=== PATIENT | female | born 2000 | race Caucasian/White ===

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

== ENCOUNTER 2022-11-19 15:54 | Emergency (ER) | payer OTHER ==
[~2022-11-19] VITALS: Ht 129.5 cm; Wt 69.2 kg
[2022-11-19 16:05] VITALS: BP 126/69
[2022-11-19 17:06] LABS: BASOPHILS % (AUTO) 0.5 % (0.0-2.0); EOSINOPHILS # (AUTO) 0.1 K/uL (0-0.4); EOSINOPHILS % (AUTO) 1.1 % (0.0-4.0); HEMATOCRIT 36.4 % (36-48); HEMOGLOBIN 12.4 g/dL (12.0-16.0); LYMPHOCYTES # (AUTO) 1.6 K/uL (2.5-16.5); LYMPHOCYTES % (AUTO) 21.6 % (20.5-51.1); MEAN CORPUSCULAR HEMOGLOBIN 30 pg (27-31); MEAN CORPUSCULAR HGB CONC 34 g/dL (33-37); MEAN CORPUSCULAR VOLUME 87.5 fL (80-94); MONOCYTES # (AUTO) 0.5 K/uL (0.8-1.0); MONOCYTES % (AUTO) 6.7 % (1.7-9.3); NEUTROPHILS # (AUTO) 5.3 K/uL (1.8-7.7); NEUTROPHILS % (AUTO) 70.1 % (42.2-75.2); PLATELET COUNT (AUTO) 312 K/uL (140-450); RED BLOOD CELL COUNT(AUTO) 4.16 MIL/uL (4.20-5.40); RED CELL DISTRIBUTION WIDTH 13.1 % (11.6-13.7); WHITE BLOOD COUNT (AUTO) 7.5 K/uL (4.8-10.8)
--- NOTE | 2022-11-19 17:17 | NUR ---
C/O N/V X 2 MONTHS, LOWER ABDOMINAL CRAMPING X 4 DAYS, DIARRHEA X 2 DAYS AND VAGINAL BLEEDING X YESTERDAY. LMP 08/17/22. 12 WEEKS .
[2022-11-19] MEDS: ONDANSETRON 4 MG ODT PO ONE (17:43)
[2022-11-19] MEDS ORDERED: HYDROcodone/APAP 5/325 MG 1 TAB TAB ONE (18:08)
[2022-11-19] MEDS: HYDROcodone/APAP 5/325 MG 1 TAB TAB PO ONE (18:10)
[2022-11-19 18:41] LABS: APPEARANCE,URINE CLEAR (CLEAR); BILIRUBIN,URINE NEGATIVE (NEGATIVE); BLOOD, URINE TRACE-I (NEGATIVE); COLOR,URINE YELLOW (YELLOW); LEUKOCYTE ESTERASE ,URINE NEGATIVE (NEGATIVE); NITRITE, URINE NEGATIVE (NEGATIVE); UGLUCOSE NEGATIVE (NEGATIVE)
[2022-11-19 19:16] LABS: OTHER CASTS, URINE None Seen /LPF (None Seen); WBC,URINE 0-5 /HPF (0-5)
[2022-11-19] MEDS ORDERED: ACET-10509 PO (19:41)
[2022-11-19] MEDS ORDERED: CEPH-588 PO (19:41)
[2022-11-19] MEDS ORDERED: ONDA-188 PO (19:41)
[2022-11-19] MEDS ORDERED: ACET-8905 PO (19:41)
[2022-11-19 19:54] VITALS: BP 126/69
--- NOTE | 2022-11-19 19:54 | NUR ---
Patient discharged with v/s stable. Written and verbal after care instructions given and explained. Patient alert, oriented and verbalized understanding of instructions. Ambulatory with steady gait. All questions addressed prior to discharge. ID band removed. Patient advised to follow up with PMD. Rx of KEFLEX, ZOFRAN, TYLENOL, NORCO given. Patient educated on indication of medication including possible reaction and side effects. Opportunity to ask questions provided and answered.
== END 2022-11-19 18:54 | disposition home or self-care (01) ==
LOC: MED 15:54
DX: O20.8 Other hemorrhage in early pregnancy (principal); O98.811 Other maternal infectious and parasitic diseases complicating pregnancy, first trimester; O21.8 Other vomiting complicating pregnancy; R82.71 Bacteriuria; J45.909 Unspecified asthma, uncomplicated; Z3A.12 12 weeks gestation of pregnancy; Z79.899 Other long term (current) drug therapy
CPT/HCPCS: 36415; 76801; 81001; 81025; 84702; 85025; 86900; 86901; 99284; Q0092; Q0162